=== PATIENT | male | born 1950 | race Caucasian/White ===

== ENCOUNTER 2019-11-24 12:40 | Inpatient (IN) | payer BC, MEDICARE ==
[~2019-11-24] VITALS: Ht 182.9 cm; Wt 79.1 kg
[2019-11-24] MEDS ORDERED: LIDOCAINE 2%,20 ML JEL.PF.APP MM ONE ×2 (12:56→14:00)
[2019-11-24] MEDS ORDERED: SODIUM CHLORIDE 0.9% 1,000ML IVBOLUS ONE (13:00)
[2019-11-24] MEDS ORDERED: SODIUM CHLORIDE FLUSH 10ML SYR IVF ONE (13:00)
--- NOTE | 2019-11-24 13:20 | NUR ---
LAB AT BEDSIDE FOR REPEAT LABS (METABOLIC PANEL)
[2019-11-24] MEDS ORDERED: MORPHINE SULFATE 4 MG/ML, 1ML ONE (13:29)
[2019-11-24] MEDS ORDERED: MORPHINE SULFATE 4 MG/ML, 1ML IVPush PRN (13:30)
[2019-11-24 13:34] LABS: ANION GAP 21 mmol/L (5-15); CALCIUM 8.6 mg/dL (8.5-10.1); CHLORIDE 96 mmol/L (98-107)
--- NOTE | 2019-11-24 13:46 | NUR ---
1,900ML OF BLOODY DARK URINE DRAINED FROM KO-PROVIDER AWARE
--- NOTE | 2019-11-24 13:50 | NUR ---
DR. 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 WELL WATCH YOU AND I THINK YOU'LL BE FINE."
--- NOTE | 2019-11-24 13:56 | NUR ---
DR. LÓPEZ (HOSPITALIST) AT BEDSIDE URINE FROM CATHETER WALKED TO LAB FOR UA
[2019-11-24] MEDS ORDERED: ALBUTEROL 0.5%, 20ML NPPB ONE (14:00)
[2019-11-24] MEDS ORDERED: SODIUM CHLORIDE 0.9% 1,000 ML IV SCH (14:04)
[2019-11-24 14:11] LABS: MICROSCOPIC INDICATED
--- NOTE | 2019-11-24 14:15 | NUR ---
ADDITIONAL 400ML DRAINED FROM KO
[2019-11-24] MEDS ORDERED: ONDANSETRON ODT 4 MG PO PRN (14:30)
[2019-11-24] MEDS ORDERED: SODIUM ZIRCONIUM CYCLOSILICATE 10 GM PO SCH (14:30)
[2019-11-24] MEDS ORDERED: SODIUM BICARB 8.4%, 50ML SYRINGE IVPush ONE (14:30)
[2019-11-24] MEDS ORDERED: ONDANSETRON 2MG/ML, 2ML IVPush PRN (14:30)
--- NOTE | 2019-11-24 15:15 | NUR ---
ANOTHER 1300ML OF URINE DRAINED FROM KO-NOW CLEAR/YELLOW MEDICATIONS REVIEWED-BANKRUPTCY PARALEGAL HESISTANT TO ADMIN I FEEL ACIDOSIS FROM UREMIA IMPROVED WITH MASSIVE URINARY OUTPUT. DR. LÓPEZ ASKED IF BICARB/NEB ETC COULD WAIT TILL AFTER REPAEAT METABLOIC PANEL DR. LÓPEZ AGREEABLE- BMP DRAWN AND WALKED TO LAB FOR ANALYSIS
[2019-11-24 15:40] LABS: ALANINE AMINOTRANSFERASE 32 U/L (12-78); ALBUMIN 3.2 g/dL (3.4-5.0); ANION GAP 19 mmol/L (5-15); CALCIUM 9.1 mg/dL (8.5-10.1); CHLORIDE 107 mmol/L (98-107)
[2019-11-24 15:48] LABS: ALKALINE PHOSPHATASE 133 U/L (45-117); BILIRUBIN,TOTAL 0.6 mg/dL (0.2-1.0); TOTAL PROTEIN 7.7 g/dL (6.4-8.2)
--- NOTE | 2019-11-24 16:06 | NUR ---
REPEAT METABOLIC PANEL REVIEWED. DR. LÓPEZ PAGED. HE WOULD LIKE TO INCREASE IVF TO 100ML/HR, PATIENT ALLOWED TO DRINK, D/C HYPERKALEMIA MEDICATIONS AND PAGE NEPHROLOGY TO SEE IF PATIENT STILL NEEDS BICARB. 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 AWAITING
--- NOTE | 2019-11-24 16:16 | NUR ---
DR. ELI (UROLOGY) CALLED BACK. HE WOULD LIKE 1AMP OF BICARB ADMINISTERED [facility] WELL 3 AMP OF BICARB IN 1L NS TO BE INFUSED AT 100/HR (PHARMACY CALLED TO MAKE BICARB INFUSION). HE ALSO WOULD LIKE TO WATCH PATIENT'S FLUID VOLUME PATIENT HAS VOIDED NEARLY 4 LITERS (BICARB MAINT + NS) ONCVER BICARB IS DONE TO ASSESS IF ADDITIONAL FLUID NEEDED WELL
[2019-11-24] MEDS ORDERED: SODIUM BICARBONATE 1 MEQ/ML, 50ML VIAL ONE (16:22)
[2019-11-24] MEDS: SODIUM BICARBONATE 8.4% 150 MEQ in DEXTROSE 5% 1,000 ML IV SCH (16:39)
[2019-11-24 17:09] LABS: BASOPHILS # (AUTO) 0.09 x10^3/uL (0-0.1); BASOPHILS % (AUTO) 1 % (0-1); EOSINOPHILS # (AUTO) 0.11 x10^3/uL (0-0.4); EOSINOPHILS % (AUTO) 2 % (1-7); LYMPHOCYTES % (AUTO) 8 % (22-44); MD NO; MEAN CORPUSCULAR HEMOGLOBIN 28.9 pg (27.5-34.5); MEAN CORPUSCULAR HGB CONC 33.5 g/dL (33.2-36.2); MEAN CORPUSCULAR VOLUME 86.3 fL (81-97); MEAN PLATELET VOLUME 7.3 fL (7.4-10.4); MONOCYTES # (AUTO) 0.76 x10^3/uL (0.2-0.8); MONOCYTES % (AUTO) 10 % (2-9); NEUTROPHILS # (AUTO) 5.78 x10^3/uL (1.8-6.8); NEUTROPHILS % (AUTO) 79 % (42-75); PLATELET COUNT 171 x10^3/uL (130-400); RED BLOOD COUNT 4.64 x10^6/uL (4.38-5.82); RED CELL DISTRIBUTION WIDTH 13.8 % (9.4-14.8)
[2019-11-24] MEDS: CEFTRIAXONE PMX 2GM/50ML 50 ML IV SCH (18:36)
[2019-11-24] MEDS: CARVEDILOL 3.125 MG TABLET PO SCH (18:43)
[2019-11-24 19:48] VITALS: BP 146/84
[2019-11-25] VITALS: BP 148/78
[2019-11-25] MEDS: SODIUM BICARBONATE 8.4% 150 MEQ in DEXTROSE 5% 1,000 ML IV SCH ×2 (02:23→16:12)
[2019-11-25 04:42] LABS: BASOPHILS # (AUTO) 0.02 x10^3/uL (0-0.1); BASOPHILS % (AUTO) 0 % (0-1); EOSINOPHILS # (AUTO) 0.15 x10^3/uL (0-0.4); EOSINOPHILS % (AUTO) 2 % (1-7); LYMPHOCYTES # (AUTO) 0.51 x10^3/uL (1-3.4); LYMPHOCYTES % (AUTO) 8 % (22-44); MD NO; MEAN CORPUSCULAR HEMOGLOBIN 28.6 pg (27.5-34.5); MEAN CORPUSCULAR HGB CONC 32.7 g/dL (33.2-36.2); MEAN CORPUSCULAR VOLUME 87.6 fL (81-97); MEAN PLATELET VOLUME 6.6 fL (7.4-10.4); MONOCYTES # (AUTO) 1.06 x10^3/uL (0.2-0.8); MONOCYTES % (AUTO) 16 % (2-9); NEUTROPHILS # (AUTO) 4.93 x10^3/uL (1.8-6.8); NEUTROPHILS % (AUTO) 74 % (42-75); PLATELET COUNT 169 x10^3/uL (130-400); RED BLOOD COUNT 4.47 x10^6/uL (4.38-5.82); RED CELL DISTRIBUTION WIDTH 13.6 % (9.4-14.8)
[2019-11-25 04:55] LABS: ALBUMIN 2.9 g/dL (3.4-5.0); ANION GAP 9 mmol/L (5-15); CALCIUM 8.8 mg/dL (8.5-10.1); CHLORIDE 112 mmol/L (98-107)
[2019-11-25 04:59] LABS: ALANINE AMINOTRANSFERASE 30 U/L (12-78); ALKALINE PHOSPHATASE 109 U/L (45-117); BILIRUBIN,TOTAL 0.7 mg/dL (0.2-1.0); CREATININE 3.16 mg/dL (0.7-1.3)
[2019-11-25] MEDS: CARVEDILOL 3.125 MG TABLET PO SCH ×2 (06:06→17:52)
[2019-11-25 06:44] VITALS: BP 143/73
[2019-11-25] MEDS: TAMSULOSIN 0.4 MG CAP.ER.24H PO SCH (08:20)
[2019-11-25 12:11] VITALS: BP 109/67
[2019-11-25] MEDS ORDERED: SODIUM CHLORIDE 0.9% 1,000 ML IV SCH (14:04)
[2019-11-25] MEDS: CEFTRIAXONE PMX 2GM/50ML 50 ML IV SCH (17:42)
[2019-11-25 17:45] VITALS: BP 129/68
[2019-11-25 18:46] VITALS: BP 115/64
[2019-11-26 01:19] VITALS: BP 110/65
[2019-11-26 05:20] LABS: BASOPHILS # (AUTO) 0.04 x10^3/uL (0-0.1); BASOPHILS % (AUTO) 1 % (0-1); EOSINOPHILS # (AUTO) 0.14 x10^3/uL (0-0.4); EOSINOPHILS % (AUTO) 3 % (1-7); LYMPHOCYTES # (AUTO) 0.85 x10^3/uL (1-3.4); LYMPHOCYTES % (AUTO) 16 % (22-44); MD NO; MEAN CORPUSCULAR HEMOGLOBIN 29.1 pg (27.5-34.5); MEAN CORPUSCULAR HGB CONC 33.8 g/dL (33.2-36.2); MEAN CORPUSCULAR VOLUME 86.3 fL (81-97); MEAN PLATELET VOLUME 6.6 fL (7.4-10.4); MONOCYTES # (AUTO) 0.79 x10^3/uL (0.2-0.8); MONOCYTES % (AUTO) 15 % (2-9); NEUTROPHILS % (AUTO) 67 % (42-75); PLATELET COUNT 191 x10^3/uL (130-400); RED BLOOD COUNT 4.02 x10^6/uL (4.38-5.82); RED CELL DISTRIBUTION WIDTH 13.4 % (9.4-14.8)
[2019-11-26] MEDS: CARVEDILOL 3.125 MG TABLET PO SCH ×2 (05:28→17:30)
[2019-11-26 05:37] LABS: CHLORIDE 101 mmol/L (98-107)
[2019-11-26 05:43] LABS: ALANINE AMINOTRANSFERASE 26 U/L (12-78); ALBUMIN 2.4 g/dL (3.4-5.0); ALKALINE PHOSPHATASE 90 U/L (45-117); ANION GAP 5 mmol/L (5-15); BILIRUBIN,TOTAL 0.4 mg/dL (0.2-1.0); CALCIUM 8.1 mg/dL (8.5-10.1); CREATININE 0.55 mg/dL (0.7-1.3); TOTAL PROTEIN 6.3 g/dL (6.4-8.2)
[2019-11-26 07:07] VITALS: BP 138/74
[2019-11-26] MEDS: TAMSULOSIN 0.4 MG CAP.ER.24H PO SCH (07:48)
[2019-11-26] MEDS: SODIUM BICARBONATE 8.4% 150 MEQ in DEXTROSE 5% 1,000 ML IV SCH ×2 (07:49)
[2019-11-26] MEDS ORDERED: POTASSIUM CHLORIDE 20 MEQ TAB.ER.PRT PO ONE (08:00)
[2019-11-26] MEDS ORDERED: MAGNESIUM SULFATE PMX 2GM/50ML 50 ML IV ONE (08:00)
[2019-11-26] MEDS ORDERED: POTASSIUM PHOSPHATE 22 MEQ in SODIUM CHLORIDE 0.9% 500 ML IV ONE (08:00)
[2019-11-26] MEDS ORDERED: SODIUM CHLORIDE 0.45% 1,000 ML IV SCH (09:00)
[2019-11-26] MEDS: MAGNESIUM CHLORIDE 64 MG TABLET.DR PO SCH ×2 (09:11→20:07)
[2019-11-26 12:05] VITALS: BP 124/74
[2019-11-26 17:22] VITALS: BP 134/77
[2019-11-26] MEDS: CEFTRIAXONE PMX 2GM/50ML 50 ML IV SCH (18:32)
[2019-11-26 20:22] VITALS: BP 131/78
[2019-11-27 00:42] VITALS: BP 131/71
[2019-11-27 05:10] LABS: ALANINE AMINOTRANSFERASE 26 U/L (12-78); ALBUMIN 2.5 g/dL (3.4-5.0); ANION GAP 8 mmol/L (5-15); CALCIUM 8.4 mg/dL (8.5-10.1); CHLORIDE 103 mmol/L (98-107); CREATININE 0.52 mg/dL (0.7-1.3)
[2019-11-27 05:13] LABS: ALKALINE PHOSPHATASE 95 U/L (45-117); BILIRUBIN,TOTAL 0.4 mg/dL (0.2-1.0); TOTAL PROTEIN 6.8 g/dL (6.4-8.2)
[2019-11-27 05:21] VITALS: BP 141/68
[2019-11-27] MEDS: CARVEDILOL 3.125 MG TABLET PO SCH ×2 (05:23→18:05)
[2019-11-27 05:24] LABS: BASOPHILS # (AUTO) 0.08 x10^3/uL (0-0.1); BASOPHILS % (AUTO) 1 % (0-1); EOSINOPHILS # (AUTO) 0.22 x10^3/uL (0-0.4); EOSINOPHILS % (AUTO) 3 % (1-7); LYMPHOCYTES # (AUTO) 0.96 x10^3/uL (1-3.4); LYMPHOCYTES % (AUTO) 13 % (22-44); MD NO; MEAN CORPUSCULAR HEMOGLOBIN 29.2 pg (27.5-34.5); MEAN CORPUSCULAR HGB CONC 33.2 g/dL (33.2-36.2); MEAN CORPUSCULAR VOLUME 87.8 fL (81-97); MEAN PLATELET VOLUME 6.6 fL (7.4-10.4); MONOCYTES # (AUTO) 0.82 x10^3/uL (0.2-0.8); MONOCYTES % (AUTO) 11 % (2-9); NEUTROPHILS # (AUTO) 5.25 x10^3/uL (1.8-6.8); NEUTROPHILS % (AUTO) 72 % (42-75); PLATELET COUNT 222 x10^3/uL (130-400); RED BLOOD COUNT 3.99 x10^6/uL (4.38-5.82); RED CELL DISTRIBUTION WIDTH 13.3 % (9.4-14.8)
[2019-11-27 06:44] VITALS: BP 123/73
[2019-11-27] MEDS: TAMSULOSIN 0.4 MG CAP.ER.24H PO SCH (08:49)
[2019-11-27] MEDS: MAGNESIUM CHLORIDE 64 MG TABLET.DR PO SCH ×2 (08:49→21:03)
[2019-11-27 13:15] VITALS: BP 126/74
[2019-11-27 17:41] VITALS: BP 130/73
[2019-11-27 20:42] VITALS: BP 139/82
[2019-11-27] MEDS ORDERED: BISACODYL 10 MG SUPP PR PRN (21:30)
[2019-11-27] MEDS ORDERED: MAGNESIUM CITRATE 300ML ORAL SOL PO PRN (21:30)
[2019-11-28 00:52] VITALS: BP 149/75
[2019-11-28 04:59] LABS: CHLORIDE 103 mmol/L (98-107)
[2019-11-28 05:00] LABS: BASOPHILS # (AUTO) 0.05 x10^3/uL (0-0.1); BASOPHILS % (AUTO) 1 % (0-1); EOSINOPHILS # (AUTO) 0.27 x10^3/uL (0-0.4); EOSINOPHILS % (AUTO) 3 % (1-7); LYMPHOCYTES # (AUTO) 0.98 x10^3/uL (1-3.4); LYMPHOCYTES % (AUTO) 12 % (22-44); MD NO; MEAN CORPUSCULAR HEMOGLOBIN 28.6 pg (27.5-34.5); MEAN CORPUSCULAR HGB CONC 32.4 g/dL (33.2-36.2); MEAN CORPUSCULAR VOLUME 88.3 fL (81-97); MEAN PLATELET VOLUME 6.7 fL (7.4-10.4); MONOCYTES # (AUTO) 0.79 x10^3/uL (0.2-0.8); MONOCYTES % (AUTO) 10 % (2-9); NEUTROPHILS # (AUTO) 6.05 x10^3/uL (1.8-6.8); NEUTROPHILS % (AUTO) 74 % (42-75); PLATELET COUNT 292 x10^3/uL (130-400); RED CELL DISTRIBUTION WIDTH 13.1 % (9.4-14.8)
[2019-11-28 05:08] LABS: ALANINE AMINOTRANSFERASE 31 U/L (12-78); ALBUMIN 2.6 g/dL (3.4-5.0); ALKALINE PHOSPHATASE 104 U/L (45-117); ANION GAP 5 mmol/L (5-15); BILIRUBIN,TOTAL 0.5 mg/dL (0.2-1.0); CALCIUM 8.7 mg/dL (8.5-10.1); TOTAL PROTEIN 7.2 g/dL (6.4-8.2)
[2019-11-28 05:49] VITALS: BP 135/77
[2019-11-28] MEDS: CARVEDILOL 3.125 MG TABLET PO SCH ×2 (05:50→17:26)
[2019-11-28] MEDS: ACETAMINOPHEN 325 MG TABLET PO PRN ×2 (05:50→09:31)
[2019-11-28 07:13] VITALS: BP 101/66
[2019-11-28] MEDS: TAMSULOSIN 0.4 MG CAP.ER.24H PO SCH (08:54)
[2019-11-28] MEDS: MAGNESIUM CHLORIDE 64 MG TABLET.DR PO SCH ×2 (08:54→20:40)
[2019-11-28 13:10] LABS: MICROSCOPIC INDICATED
[2019-11-28 14:36] VITALS: BP 108/63
[2019-11-28 17:25] VITALS: BP 136/76
[2019-11-28 20:01] VITALS: BP 151/57
[2019-11-28 22:04] LABS: CREATININE,URINE RANDOM 34.9 mg/dL
[2019-11-29 00:11] VITALS: BP 141/78
[2019-11-29] MEDS: ACETAMINOPHEN 325 MG TABLET PO PRN ×3 (00:30→20:17)
[2019-11-29 06:15] VITALS: BP 134/78
[2019-11-29] MEDS: CARVEDILOL 3.125 MG TABLET PO SCH ×2 (06:16→17:08)
[2019-11-29 06:19] LABS: BASOPHILS # (AUTO) 0.14 x10^3/uL (0-0.1); BASOPHILS % (AUTO) 2 % (0-1); EOSINOPHILS # (AUTO) 0.31 x10^3/uL (0-0.4); EOSINOPHILS % (AUTO) 4 % (1-7); LYMPHOCYTES # (AUTO) 0.89 x10^3/uL (1-3.4); LYMPHOCYTES % (AUTO) 11 % (22-44); MD NO; MEAN CORPUSCULAR HEMOGLOBIN 28.8 pg (27.5-34.5); MEAN CORPUSCULAR VOLUME 87.2 fL (81-97); MEAN PLATELET VOLUME 6.5 fL (7.4-10.4); MONOCYTES # (AUTO) 0.85 x10^3/uL (0.2-0.8); MONOCYTES % (AUTO) 10 % (2-9); NEUTROPHILS # (AUTO) 6.17 x10^3/uL (1.8-6.8); NEUTROPHILS % (AUTO) 74 % (42-75); PLATELET COUNT 332 x10^3/uL (130-400); RED BLOOD COUNT 3.94 x10^6/uL (4.38-5.82); RED CELL DISTRIBUTION WIDTH 12.9 % (9.4-14.8)
[2019-11-29 06:40] VITALS: BP 141/80
[2019-11-29 06:40] LABS: CHLORIDE 104 mmol/L (98-107)
[2019-11-29 06:47] LABS: ALANINE AMINOTRANSFERASE 31 U/L (12-78); ALBUMIN 2.6 g/dL (3.4-5.0); ALKALINE PHOSPHATASE 103 U/L (45-117); ANION GAP 7 mmol/L (5-15); BILIRUBIN,TOTAL 0.6 mg/dL (0.2-1.0); CALCIUM 8.8 mg/dL (8.5-10.1); CREATININE 0.54 mg/dL (0.7-1.3); TOTAL PROTEIN 7.2 g/dL (6.4-8.2)
[2019-11-29] MEDS: TAMSULOSIN 0.4 MG CAP.ER.24H PO SCH (09:00)
[2019-11-29] MEDS: MAGNESIUM CHLORIDE 64 MG TABLET.DR PO SCH ×2 (09:00→20:17)
[2019-11-29 13:43] VITALS: BP 119/73
[2019-11-29 17:40] VITALS: BP 130/85
[2019-11-29 20:08] VITALS: BP 111/69
[2019-11-30 00:32] VITALS: BP 121/73
[2019-11-30 04:06] LABS: BASOPHILS # (AUTO) 0.07 x10^3/uL (0-0.1); BASOPHILS % (AUTO) 1 % (0-1); EOSINOPHILS # (AUTO) 0.44 x10^3/uL (0-0.4); EOSINOPHILS % (AUTO) 6 % (1-7); LYMPHOCYTES # (AUTO) 1.01 x10^3/uL (1-3.4); LYMPHOCYTES % (AUTO) 13 % (22-44); MD NO; MEAN CORPUSCULAR HEMOGLOBIN 28.6 pg (27.5-34.5); MEAN CORPUSCULAR HGB CONC 32.7 g/dL (33.2-36.2); MEAN CORPUSCULAR VOLUME 87.5 fL (81-97); MEAN PLATELET VOLUME 6.3 fL (7.4-10.4); MONOCYTES # (AUTO) 0.98 x10^3/uL (0.2-0.8); MONOCYTES % (AUTO) 13 % (2-9); NEUTROPHILS # (AUTO) 5.19 x10^3/uL (1.8-6.8); NEUTROPHILS % (AUTO) 67 % (42-75); PLATELET COUNT 360 x10^3/uL (130-400); RED BLOOD COUNT 3.85 x10^6/uL (4.38-5.82); RED CELL DISTRIBUTION WIDTH 13.2 % (9.4-14.8)
[2019-11-30 04:18] LABS: ALBUMIN 2.5 g/dL (3.4-5.0); ANION GAP 7 mmol/L (5-15); CALCIUM 8.4 mg/dL (8.5-10.1); CHLORIDE 102 mmol/L (98-107)
[2019-11-30 04:26] LABS: % IRON SATURATION 10 % (20-55); ALANINE AMINOTRANSFERASE 32 U/L (12-78); ALKALINE PHOSPHATASE 106 U/L (45-117); BILIRUBIN,TOTAL 0.4 mg/dL (0.2-1.0); CREATININE 0.68 mg/dL (0.7-1.3); IRON LEVEL 21 mcg/dL (65-175); TOTAL IRON BINDING CAPACITY 219 mcg/dL (250-450); TOTAL PROTEIN 7.3 g/dL (6.4-8.2)
[2019-11-30] MEDS: CARVEDILOL 3.125 MG TABLET PO SCH ×2 (05:54→18:51)
[2019-11-30 06:50] VITALS: BP 132/75
[2019-11-30] MEDS: MAGNESIUM CHLORIDE 64 MG TABLET.DR PO SCH ×2 (10:26→21:42)
[2019-11-30] MEDS: TAMSULOSIN 0.4 MG CAP.ER.24H PO SCH (10:27)
[2019-11-30 12:04] VITALS: BP 106/64
[2019-11-30] MEDS: DIPHENHYDRAMINE/ZINC CRM 2%, 30GM TP PRN (15:42)
[2019-11-30] MEDS: ACETAMINOPHEN 325 MG TABLET PO PRN (15:47)
[2019-11-30 18:25] VITALS: BP 124/69
[2019-12-01] MEDS: ACETAMINOPHEN 325 MG TABLET PO PRN (00:06)
[2019-12-01 01:02] VITALS: BP 110/68
[2019-12-01] MEDS: CARVEDILOL 3.125 MG TABLET PO SCH ×2 (06:03→17:12)
[2019-12-01 06:47] VITALS: BP 116/73
[2019-12-01] MEDS: TAMSULOSIN 0.4 MG CAP.ER.24H PO SCH (07:56)
[2019-12-01 12:08] VITALS: BP 124/64
[2019-12-01] MEDS: DIPHENHYDRAMINE/ZINC CRM 2%, 30GM TP PRN (13:21)
[2019-12-01] MEDS: FERROUS SULFATE 325 MG TABLET PO SCH (17:12)
[2019-12-01 20:05] VITALS: BP 142/79
[2019-12-02 00:32] VITALS: BP 128/70
[2019-12-02] MEDS: CARVEDILOL 3.125 MG TABLET PO SCH ×2 (05:31→17:03)
[2019-12-02 07:55] VITALS: BP 113/69
[2019-12-02] MEDS: DOCUSATE 100 MG CAPSULE PO SCH (09:00)
[2019-12-02] MEDS: TAMSULOSIN 0.4 MG CAP.ER.24H PO SCH (10:00)
[2019-12-02] MEDS: FERROUS SULFATE 325 MG TABLET PO SCH ×2 (10:00→17:03)
[2019-12-02] MEDS: METHOCARBAMOL 500 MG TABLET PO PRN ×2 (10:00→17:03)
[2019-12-02 11:06] LABS: ANION GAP 5 mmol/L (5-15); CALCIUM 8.7 mg/dL (8.5-10.1); CHLORIDE 102 mmol/L (98-107); CREATININE 0.66 mg/dL (0.7-1.3)
[2019-12-02 13:12] VITALS: BP 109/70
[2019-12-02] MEDS: ACETAMINOPHEN 325 MG TABLET PO PRN (15:17)
[2019-12-02 17:01] VITALS: BP 108/67
[2019-12-02 19:34] VITALS: BP 108/66
[2019-12-03 00:37] VITALS: BP 124/72
[2019-12-03 05:26] VITALS: BP 127/77
[2019-12-03] MEDS: CARVEDILOL 3.125 MG TABLET PO SCH (05:28)
[2019-12-03 08:05] VITALS: BP 106/62
[2019-12-03] MEDS: DOCUSATE 100 MG CAPSULE PO SCH ×2 (09:00→09:09)
[2019-12-03] MEDS: ACETAMINOPHEN 325 MG TABLET PO PRN (09:09)
[2019-12-03] MEDS: TAMSULOSIN 0.4 MG CAP.ER.24H PO SCH (09:09)
[2019-12-03] MEDS: FERROUS SULFATE 325 MG TABLET PO SCH (09:09)
[2019-12-03] MEDS ORDERED: CARV3.1212 PO (09:21)
[2019-12-03] MEDS ORDERED: ACET325T26 PO (09:21)
[2019-12-03] MEDS ORDERED: METH500T7 PO (09:21)
[2019-12-03] MEDS ORDERED: TAMS-11 PO (09:21)
[2019-12-03] MEDS ORDERED: DOCU100C33 PO (09:21)
[2019-12-03] MEDS ORDERED: FERR-51 PO (09:21)
[2019-12-03] MEDS: METHOCARBAMOL 500 MG TABLET PO PRN (11:09)
== END 2019-12-03 13:47 | DRG 683 ==
LOC: ED 13:38 → EDIP 13:40 → 4WST 17:28
PROVIDERS: ADMIT Internal Medicine; ATTEND Internal Medicine
PROC: 0T9B70Z Drainage of Bladder with Drainage Device, Via Natural or Artificial Opening (ICD-10-PCS; principal; 2019-11-24)
DX: N17.0 Acute kidney failure with tubular necrosis (principal); E87.1 Hypo-osmolality and hyponatremia; E87.2 Acidosis; D64.9 Anemia, unspecified; N13.6 Pyonephrosis; E83.39 Other disorders of phosphorus metabolism; E83.42 Hypomagnesemia; E87.5 Hyperkalemia; R31.0 Gross hematuria; M62.838 Other muscle spasm; E87.6 Hypokalemia; I10 Essential (primary) hypertension; I48.91 Unspecified atrial fibrillation; N40.0 Benign prostatic hyperplasia without lower urinary tract symptoms; Z66 Do not resuscitate; Z96.612 Presence of left artificial shoulder joint; Z03.818 Encounter for observation for suspected exposure to other biological agents ruled out
CPT/HCPCS: 36415; 76770; 80048; 80053; 81001; 82040; 82570; 82728; 82962; 83540; 83550; 83735; 84100; 84156; 85025; 87040; 87086; 87635; 93005; 96361; 96374; 96375; G0378; J0696; J7070; J2270; J3475; J7030; J7040